=== PATIENT | female | born 1955 | race Caucasian/White ===

== ENCOUNTER → 2017-12-07 | Outpatient (CLI) | payer OTHER ==
[~2017-12-07] MED LIST: COPAXONE20 MG/KIT; GADOBENATE DIMEGLUMINE 0 ML IV ONE; LISINOPRIL10 MG PO; PANTOPRAZOLE SO40 MG PO
--- NOTE | 2017-12-08 07:31 | Diagnostic Imaging Report ---
EXAMINATION: MRI of the cervical spine without contrast HISTORY: Multiple sclerosis COMPARISON: Cervical spine MRI on 01/27/2016 TECHNIQUE: Sagittal T1, T2, STIR; axial T1, T2. FINDINGS: Spinal Cord: Spinal cord size: Normal T1 lesions: None Enhancing lesions: Cannot be evaluated due to the lack of IV contrast T2 lesions: Unchanged previously seen scatter demyelinating T2 lesions throughout the cervical spinal cord Bulbo-medullary junction: Ventral cord. Base of the dens level: Central cord and left lateral cord . C5: Less conspicuous, which may be technique related. Questionable small T2 lesions only seen on axial plane on the right side of the cord at C4 and the left lateral cord at T1 versus artifact. Others: Vertebrae: Normal alignment, height, signal intensity. Discs: Disc osteophyte complex formation, bilateral uncovertebral and facet arthrosis results in mild spinal canal and moderately severe foraminal stenosis on the left at C3-C4, mild spinal canal and bilateral foraminal stenosis at C4-C5, C5-C6 and C6-7. Craniocervical junction: Normal. IMPRESSION: 1. No significant interval change in previously seen few cervical spinal cord demyelinating T2 lesions. No new demyelinating T2 lesions. 2. No spinal cord atrophy. 3. Mild multilevel degenerative changes as detailed above. Signed by: Dr. Renuka Patel M.D. on 12/08/2017 7:28 AM
--- NOTE | 2017-12-08 07:37 | Diagnostic Imaging Report ---
EXAMINATION: MRI of the brain without contrast. HISTORY:Multiple sclerosis. COMPARISON:Cervical spine MRI and 01/27/2016 TECHNIQUE: Axial T1, T2, FLAIR, DWI, sagittal T2 FLAIR. FINDINGS: T2 lesions: Unchanged approximately 25-30 the 2 lesions located in the kyphosis at the interface, coronary gadolinium, centrum semiovale, a few juxta cortical lesions, bilateral ventral aide close to the root entry zone for the cystogram nurse, bilateral middle cerebellar peduncles, left lateral medullary and ventral cervical medullary junction. Less conspicuous T2 hyperintense band along the inferior margin of the corpus callosum, likely technique related. No new T2 lesions T1 lesions: Unchanged 5-10 slightly T1 hyperintense lesions. Enhancing lesions: Cannot be evaluated due to the lack of IV contrast Corpus callosum volume: Normal. Brain volume: Normal for age. Other: No mass, hydrocephalus, hemorrhage, acute or chronic infarcts IMPRESSION: 1. Unchanged mostly supratentorial white matter demyelinating T2 lesions. No discrete new T1 or T2 lesions. 2. No disproportionate brain or callosal atrophy. Signed by: Dr. Renuka Patel M.D. on 12/08/2017 7:34 AM
== END ==
LOC: MRI 08:34
PROVIDERS: ATTEND Student in an Organized Health Care Education/Training Program
DX: G35 Multiple sclerosis (principal)
CPT/HCPCS: 36415; 70551; 72141; 82565; 84520

== ENCOUNTER → 2020-04-03 | Outpatient (CLI) | payer MEDICARE ==
[~2020-04-03] MED LIST changes: -GADOBENATE DIMEGLUMINE 0 ML IV ONE
--- NOTE | 2020-04-03 12:15 | Diagnostic Imaging Report ---
MS brain Examination: MRI BRAIN WO CONTRAST HISTORY:Multiple sclerosis follow up. COMPARISON:Brain MRI performed December 07, 2014 TECHNIQUE: Sagittal FLAIR; axial T1, T2, FLAIR; axial and coronal T1. Contrast: None. FINDINGS: T2 lesions: Number: Unchanged approximately 25-30 discrete T2 lesions. No new lesions. Location: Periventricular, deep, callosal septal interface, juxtacortical white matter. Bilateral middle cerebellar peduncles, left lateral medulla T1 "black holes": There are no lesions of cerebrospinal fluid equivalent intensity. Enhancing lesions: Cannot be assessed. Corpus callosum volume: Normal, unchanged. Brain volume: Normal for age, unchanged. Additional finding: No additional intracranial abnormality. IMPRESSION: No new demyelinating lesion. Unchanged demyelinating lesions are compared to prior brain MRI performed December 07 Signed by: Dr. Aminta Mills M.D. on 04/03/2020 12:11 PM
--- NOTE | 2020-04-03 12:21 | Diagnostic Imaging Report ---
Examination: MRI SPINE CERVICAL WO CONTRAST HISTORY: Multiple sclerosis. Follow-up examination. COMPARISON: Cervical spine MRI performed December 07, 2017. TECHNIQUE: Sagittal and axial T1; sagittal T2 and STIR. Axial T2. Intravenous contrast: None FINDINGS: Spinal cord size: Normal, unchanged. Enhancing lesions: Cannot be assessed. T2 lesions: Anterior midline correlation at the cervicomedullary junction and dens. Right anterior cord at mid C4, unchanged. Left posterior cord lesion at mid C5, unchanged. No new lesions. T1 lesions: There are no lesions of cerebrospinal fluid equivalent intensity. Vertebrae: Normal alignment, height, and signal intensity. Discs: Unchanged disc bulges from C3 through C7 with moderate canal stenosis at C6-C7 and mild canal stenosis at C4-C5 and C5-C6. Foramen magnum: No Chiari malformation, mass, or basilar invagination. Additional findings:Bilateral thyroid lesions are again seen with the largest seen in the left thyroid lobe that measures 3.0 x 1.9 cm (greatest axial dimension) and previously measuring 2.5 x 1.9 cm. If not already performed, biopsy may be obtained of this left thyroid lobe lesion. IMPRESSION: No new lesion within the cervical spinal cord. Unchanged lesions when compared to prior cervical spine MRI performed December 07, 2017 Signed by: Dr. Aminta Mills M.D. on 04/03/2020 12:18 PM
== END ==
LOC: MRI 08:34
PROVIDERS: ATTEND Student in an Organized Health Care Education/Training Program
DX: G35 Multiple sclerosis (principal)
CPT/HCPCS: 70551; 72141